=== PATIENT | female | born 1970 | race Caucasian/White ===

== ENCOUNTER 2024-07-11 16:04 | Emergency (ER) | payer BC, SELFPAY ==
[2024-07-11 16:27] VITALS: BP 105/76; PULSE 94; RESP 16; TEMP 36.9; O2SAT 99
--- NOTE | 2024-07-11 16:34 | ED.GENADULT ---
HPI - General Adult General Chief complaint: Upper Respiratory Infection Stated complaint: + COVID test on Sat, needs test & work note History of Present Illness HPI narrative: Reva Hickey is a 54-year-old female who presents today with requests for a return to work note for sunday night. She reports that she started to feel sick about 8 days ago she tested positive the following day for COVID and she is feeling completely better and wants to return to work paperwork wants her to be seen and have her return to work note. Related Data Home Medications ?Medication ?Instructions ?Recorded ?Confirmed ?Last Taken ?Type No Home Medications 07/11/24 07/11/24 Unknown History Allergies Allergy/AdvReac Type Severity Reaction Status Date / Time No Known Allergies Allergy Unknown Verified 07/11/24 16:26 Review of Systems Review of Systems: All systems reviewed & are unremarkable except as noted in HPI and below Exam Narrative: GENERAL: Well-appearing, well-nourished, and in no acute distress. HEAD: Normocephalic, atraumatic. EYES: PERRLA and EOMI. ENT: Nares clear, no rhinorrhea or epistaxis. Mucous membranes moist. Oropharynx without tonsillar hypertrophy exudate or other lesions. Bilateral TMs pearly sandoval non bulging NECK: Supple. No adenopathy or masses. No carotid bruits or JVD CHEST: Clear to auscultation. No respiratory distress. No wheezes rales or rhonchi HEART: Regular rate and rhythm. No murmur heard. Normal peripheral pulses. ABDOMEN: Soft, nontender, nondistended, normal active bowel sounds. EXTREMITIES: Normal range of motion. No edema. SKIN: Warm, dry, no rash. NEURO: No focal deficits. Alert and oriented x3. PSYCH: Normal mood and affect. Course Course Level of Care: Express Care Visit Vital Signs Vital signs: Vital Signs Temperature 36.9 C 07/11/24 16:27 Pulse Rate 94 07/11/24 16:27 Respiratory Rate 16 07/11/24 16:27 Blood Pressure 105/76 07/11/24 16:27 Pulse Oximetry 99 07/11/24 16:27 Oxygen Delivery Room Air 07/11/24 16:27 Temperature 36.9 C 07/11/24 16:27 Pulse Rate 94 07/11/24 16:27 Respiratory Rate 16 07/11/24 16:27 Blood Pressure 105/76 07/11/24 16:27 Pulse Oximetry 99 07/11/24 16:27 Oxygen Delivery Room Air 07/11/24 16:27 Medical Decision Making MDM Narrative Medical decision making narrative: 54-year-old here for medical screening to get a return to work note after getting over COVID. Lung sounds are clear throughout no fever no body aches. TMs are clear oropharynx clear. Will provide her with a return to work note PCP follow up for routine care Return precautions provided Medical Records Medical records reviewed: Yes I reviewed the external patient's medical records. Vital Signs Vital Signs: Vital Signs Temperature 36.9 C 07/11/24 16:27 Pulse Rate 94 07/11/24 16:27 Respiratory Rate 16 07/11/24 16:27 Blood Pressure 105/76 07/11/24 16:27 Pulse Oximetry 99 07/11/24 16:27 Oxygen Delivery Room Air 07/11/24 16:27 Temperature 36.9 C 07/11/24 16:27 Pulse Rate 94 07/11/24 16:27 Respiratory Rate 16 07/11/24 16:27 Blood Pressure 105/76 07/11/24 16:27 Pulse Oximetry 99 07/11/24 16:27 Oxygen Delivery Room Air 07/11/24 16:27 Vitals reviewed by me Discharge Plan Discharge Clinical Impression: Encounter for medical screening examination Patient Disposition: Home, Self-Care Condition: Stable Instructions: Antibiotic Form Additional Instructions: You may return to work on Sunday Continue to stay hydrated Follow up with your PCP for routine visits Patient Language: Macedonian Prescriptions: No Action No Home Medications Follow-up/Referrals: PHYSICIAN,[employer] [Primary Care Provider] - Stand Alone Forms: Work/School Release IP Time of Disposition: 16:41
== END 2024-07-11 16:44 | disposition home or self-care (01) ==
PROVIDERS: Emergency Provider Nurse Practitioner Family
DX: Z00.00 Encounter for general adult medical examination without abnormal findings (principal)
CPT/HCPCS: 99202; G0463